=== PATIENT | female | born 1945 | race Caucasian/White ===

== ENCOUNTER 2017-02-24 07:22 | Day surgery (SDC) | payer OTHER, MEDICARE ==
[2017-02-24 07:50] VITALS: BMI 33.5
[2017-02-24] MEDS ORDERED: PROPOFOL 20 ML ONE ×3 (08:04)
[2017-02-24] MEDS ORDERED: LIDOCAINE HCL/PF 2% SDV 5ML VIAL ONE (08:04)
[2017-02-24 08:47] VITALS: TEMP 97
[2017-02-24 09:51] VITALS: BP 147/74; PULSE 76
--- NOTE | 2017-02-25 18:42 | PATH ---
Surgical Pathology Report Patient Name: JAIDEN BOB [facility]. Rec. #: [id number] /Age/Gender: 1945 (Age: 71) / F Account: [id number] Location: [facility]-ENDOSCOPY Taken: 02/24/2017 Received: 02/24/2017 Reported: 02/25/2017 Physicians: Chandrakant Manning M.D. Specimen(s) Received BX CECAL POLYP Clinical History Preoperative diagnosis: Colon cancer screening, abdominal pain Postoperative diagnosis: Polyp Final Diagnosis CECUM, POLYP, BIOPSY: TUBULAR ADENOMA. Electronically Signed Dodie Baldwin M.D. Gross Description Received in formalin, labeled "biopsy cecal polyp" are 2 fletcher, irregular portions of soft tissue measuring 0.2 and 0.3 cm. in greatest dimension. The specimens are submitted in toto in one cassette. 02/24/201702/24/2017
== END 2017-02-24 09:51 | disposition home or self-care (01) ==
LOC: JASU-ENDO 07:22
PROVIDERS: ATTEND Internal Medicine Gastroenterology
PROC: 0DBE8ZX Excision of Large Intestine, Via Natural or Artificial Opening Endoscopic, Diagnostic (ICD-10-PCS; principal; 2017-02-24 09:00)
DX: Z12.11 Encounter for screening for malignant neoplasm of colon (principal); K63.5 Polyp of colon
CPT/HCPCS: 88305-TC